=== PATIENT | female | born 1965 | race Caucasian/White ===

== ENCOUNTER 2019-05-19 17:08 | Observation (INO) | payer BC ==
[~2019-05-19] VITALS: Ht 165.1 cm; Wt 93.0 kg
[2019-05-19 15:50] VITALS: BP 109/70
[2019-05-19] MEDS ORDERED: CARVEDILOL25 MG PO (18:42)
[2019-05-19] MEDS ORDERED: NORVASC5 M1 PO (18:43)
[2019-05-19] MEDS ORDERED: PROTONIX40 M2 PO (18:44)
[2019-05-19] MEDS ORDERED: METFORMIN HCL500 M3 PO (18:45)
[2019-05-19] MEDS ORDERED: ROSUVASTATIN CA40 MG PO (18:47)
[2019-05-19] MEDS ORDERED: NORCO 10-325 T1 EACH PO (18:48)
[2019-05-19] MEDS ORDERED: TELMISARTAN-HC1 EAC1 PO (18:48)
[2019-05-19 19:50] VITALS: BP 116/68
--- NOTE | 2019-05-19 19:51 | NUR ---
I ASSUMED CARE OF THE PATIENT AT 1745 FROM THE PACU. SHE HAD AN OUTPATIENT LEFT SHOULDER SCOPE AND HER OXYGEN SATURATION WAS LOW. BED IS IN THE LOW LOCKED POSITION AND CALL LIGHT IS IN REACH. HOURLY ROUNDING IS COMPLETED AND PATIENT NEEDS ARE MET. PAIN IS MANAGED WITH PRN MEDS. PATIENT IS VOMITING AND WAS GIVEN A PRN. DAUGHTER IS AT THE BEDSIDE. SHE IS ON A CONTINUOUS PULSE OX FOR THE NIGHT, BUT IS A 1PPD/SMOKER AND SAYS SHE FEELS NORMAL. ADMISSION WAS COMPLETED AND REPORT GIVEN. WILL CONTINUE TO MONITOR.
[2019-05-20] VITALS: BP 116/67
[2019-05-20 04:00] VITALS: BP 107/57
--- NOTE | 2019-05-20 04:02 | NUR ---
PT CARE ASSUMED AT 1930. SAT MAINTAINED IN O2. ALERT AND ORIENTED X4. C/O PAIN, MEDICATION GIVEN PER EMAR. DENIES SOB. CALL LIGHT WITHIN REACH AND BED IN LOW POSITION. DRESSING ON LFT SHOULDER C/D/I. HOURLY ROUNDING DONE FOR PT SAFETY.
[2019-05-20 08:00] VITALS: BP 109/64
[2019-05-20 11:24] VITALS: BP 109/64
--- NOTE | 2019-05-20 11:50 | NUR ---
ASSUMED PT CARE REPORT RECEIVED FROM NURSE. PT IS AOX4 , ON RA. NO COMPLAINT. REFUSES METFORMIN THIS AM. OTHER PO MEDICINE GIVEN ORDERED. CALL LIGHT AT REACH. DISCHARGE ORDERED. DC INSTRUCTIONS GIVEN TO PT WELL POST OP INSTRUCTION FROM LEFT SHOULDER SX. IV REMOVED. HEART MONITOR RETRIEVED. PT LEFT FLOOR AT 1145 ACCOMPANIED BY FAMILY MEMBER AND VOLUNTEER TRANSPORTER
== END 2019-05-20 11:47 | disposition home or self-care (01) ==
LOC: M.2W 17:08
PROVIDERS: ADMIT Internal Medicine
DX: J96.01 Acute respiratory failure with hypoxia (principal); J98.11 Atelectasis; S43.432A Superior glenoid labrum lesion of left shoulder, initial encounter; K21.9 Gastro-esophageal reflux disease without esophagitis; E11.9 Type 2 diabetes mellitus without complications; I10 Essential (primary) hypertension; E78.5 Hyperlipidemia, unspecified; F17.200 Nicotine dependence, unspecified, uncomplicated; W19.XXXA Unspecified fall, initial encounter; Y93.89 Activity, other specified

== ENCOUNTER → 2019-05-19 | Outpatient (CLI) | payer BC ==
[~2019-05-19] MED LIST: CARVEDILOL25 MG PO; METFORMIN HCL500 M3 PO; NORCO 10-325 T1 EACH PO; NORVASC5 M1 PO; PROTONIX40 M2 PO; ROSUVASTATIN CA40 MG PO; TELMISARTAN-HC1 EAC1 PO
[2019-05-19 12:28] LABS: POTASSIUM 3.7 mmol/L (3.5-5.1)
== END ==
LOC: M.LAB 04:41
PROVIDERS: Anesthesiology
DX: E11.9 Type 2 diabetes mellitus without complications (principal); E87.6 Hypokalemia